=== PATIENT | male | born 2005 | race Caucasian/White ===

== ENCOUNTER 2024-07-22 10:29 | Inpatient (IN) | payer OTHER, MEDICAID, SELFPAY ==
[2024-07-22] VITALS (18 sets, daily range): BP systolic 104–130; BP diastolic 63–96; PULSE 68–120; RESP 10–100; TEMP 36.6–36.7; O2SAT 95–100; BMI 23.2
--- NOTE | 2024-07-22 10:49 | PD.EDRME ---
Rapid Medical Screening Exam RME Arrival date/time: 07/22/24 10:29 18-year-old male with a history of type 1 diabetes presents to the emergency room with a chief complaint of nausea, vomiting, generalized weakness, abdominal pain x 2 days. Mother at bedside states the patient does not control her sugars. I have greeted and performed a focused initial assessment of this patient. A comprehensive ED assessment and evaluation of the patient, analysis of all test results, and completion of the medical decision making process will be conducted by additional ED providers. Chief Complaint: General Adult/Misc Complain Vital signs reviewed by provider: Yes
[2024-07-22 11:15] LABS: Beta Hydroxybutyrate 5.7 mmol/L (<0.6)
[2024-07-22 11:16] LABS: Basophils # (Auto) 0.1 Thou/mm3 (0.0-0.2); Basophils % (Auto) 1 % (0-2.5); Eosinophils # (Auto) 0.1 Thou/mm3 (0.0-0.5); Eosinophils % (Auto) 2 % (0-10); Hemoglobin 17.2 g/dL (13.5-16.0); Immature Granulocytes % (Auto) 0 % (0-0); Lymphocytes # (Auto) 1.6 Thou/mm3 (1.0-5.0); Lymphocytes % (Auto) 31 % (10-50); Mean Corpuscular HGB Conc 35.1 g/dl (31.0-37.0); Mean Corpuscular Hemoglobin 30.2 pg (25.0-35.0); Mean Corpuscular Volume 86 fL (80-100); Monocytes # (Auto) 0.4 Thou/mm3 (0.0-0.8); Monocytes % (Auto) 8 % (0-12); Neutrophils % (Auto) 58 % (37-80); Nucleated Red Blood Cell % 0 /100 WBC (0); Platelet Count 234 Thou/mm3 (140-440); RDW Standard Deviation 41.4 fL (35.1-43.9); White Blood Count 5.1 Thou/mm3 (4.5-11.0)
[2024-07-22 11:32] LABS: Alanine Aminotransferase 14 U/L (10-49); Albumin, Serum 5.1 gm/dL (3.5-5.0); Albumin/Globulin Ratio 1.6 (1.2-2.2); Alkaline Phosphatase 137 U/L (46-116); Anion Gap 18 (7-16); Aspartate Amino Transferase 15 U/L (0-34); BUN/Creatinine Ratio 8 Ratio (12-20); Bilirubin,Total 2.5 mg/dL (0.3-1.2); Blood Urea Nitrogen 9 mg/dL (9-23); Calcium 10.1 mg/dL (8.3-10.6); Calcium (Corrected) 10.1 mg/dL (8.5-10.1); Chloride 105 mMol/L (98-107); Creatinine (Component) 1.1 mg/dL (0.6-1.3); Estimated Creatinine Clearance 111.5 mL/min (>60); Globulin 3.1 gm/dL (2.3-3.5); Glucose 260 mg/dL (74-106); Osmolality,Calculated 277 (275-295); Sodium 135 mMol/L (136-145); Total Protein 8.2 gm/dL (5.7-8.2); eGFR > 60 See Note
[2024-07-22 11:38] LABS: Carbon Dioxide 11.6 mMol/L (20.0-31.0)
--- NOTE | 2024-07-22 11:56 | XR_ITS ---
Examination: Abdomen sonogram, Limited Date and time of exam: July 22, 2024 1250 hours INDICATIONS: Epigastric pain and vomiting beginning one week ago Technique: Real-time brown scale transabdominal sonographic images of the upper abdomen obtained. Findings: Gallbladder sludge Negative for gallstones Gallbladder wall 0.3 cm no edema Common bile duct 0.2 cm Pancreatic head 2.7 cm Liver 14.2 cm smooth contour no focal liver lesions Normal hepatopedal portal venous oh Patent IVC IMPRESSION: Gallbladder sludge Negative for cholelithiasis, negative for cholecystitis
[2024-07-22 12:01] LABS: Collection Type, Urine Clean Catch
--- NOTE | 2024-07-22 12:10 | PD.EDWEAK ---
ED Weakness RME/HPI General Chief complaint: General Adult/Misc Complain Stated complaint: PAULO LEG PAIN/NAUSEA/VOMIT LAST NIGHT DM TYPE 1 Time Seen by Provider: 07/22/24 11:20 Arrival date/time: 07/22/24 10:29 RME / HPI RME / HPI Narrative: 07/22/24 10:29 18-year-old male with a history of type 1 diabetes presents to the emergency room with a chief complaint of nausea, vomiting, generalized weakness, abdominal pain x 2 days. Mother at bedside states the patient does not control her sugars. I have greeted and performed a focused initial assessment of this patient. A comprehensive ED assessment and evaluation of the patient, analysis of all test results, and completion of the medical decision making process will be conducted by additional ED providers. DR. JJ MAIN ED EVALUATION 18 year old male with history of IDDM, previous admission for DKA (last admitted 6 months ago at [facility]), ADHD presents to the ED for evaluation of weakness beginning 2 days ago. Accompanied by abdominal pain, nausea, and vomiting. States he has yet to check his sugars or give himself insulin today. Evidently last gave himself insulin weeks ago . Denies fevers, chills, chest pain, cough, shortness of breath, or urinary symptoms. Related Data Allergies Allergy/AdvReac Type Severity Reaction Status Date / Time No Known Allergies Allergy Verified 07/22/24 10:34 Review of Systems Review of Systems Narrative Review of Systems: GEN: No fever, no chills, +generalized weakness EYES: No discharge, no visual changes, no pain HEENT: No ear pain, no congestion, no sore throat PULM: No shortness of breath, no cough, no congestion CV: No chest pain, no dyspnea on exertion, no palpitations GI: +nausea, +vomiting, no diarrhea, +pain, no constipation : No frequency, no urgency and no dysuria MUSC/SKEL No joint pain, no back pain SKIN: No rash NEURO: No headache Past Medical History Social History SMOKING STATUS: Never smoker ED Exam Narrative Physical exam: GENERAL APPEARANCE: Well hydrated, well nourished, in no acute distress. VITALS: All vitals were reviewed and the pulse ox is 97% on room air which is normal according to my interpretation. HEENT: Normocephalic, atramatic, EOMI, EACs are patent. There is no bulge or retraction. Throat without erythema or exudate. Moist oromucosa. No jaundice NECK: Supple, no JVD or bruits. CARDIOVASCULAR: Heart regular without S3-S4 or murmur. No rubs or gallops. LUNGS/CHEST: Clear to auscultation bilaterally. No rales, rhonchi, or wheezing. Normal inspection. ABDOMEN: Soft, nontender, with normal bowel sounds. No pulsatile masses. No rebound, rigidity, or guarding. No incarcerated hernia. Normal inspection and palpation. EXTREMITIES: Normal inspection and palpation. No edema, clubbing, or cyanosis. Intact CSM SKIN: Warm and dry without rashes. Normal inspection. MUSCULOSKELETAL: Normal inspection. No gross deformity, full ROM all extremities NEURO: Alert and oriented x3. Cranial nerves II through XII grossly intact. There are no other motor or sensory deficits noted. PSYCHIATRIC: Normal mood and affect. No psychosis. Course Quality Measures none Orders Category Date Time Status Fingerstick [Bedside Blood Glucose] NOW Care 07/22/24 10:48 Active Insert IV NOW Care 07/22/24 12:16 Active US gall bladder Stat Exams 07/22/24 11:56 Completed Alcohol, Blood Medical Stat Lab 07/22/24 11:05 Completed BMP [Basic Metabolic Panel] Stat Lab 07/22/24 13:30 Results Beta Hydroxybutyrate Stat Lab 07/22/24 11:05 Completed Beta Hydroxybutyrate Stat Lab 07/22/24 13:30 Results CBC Stat Lab 07/22/24 11:05 Completed CMP [Comprehensive Metabolic Panel] Stat Lab 07/22/24 11:05 Completed Drug Screen,Urine Stat Lab 07/22/24 11:54 Completed Drug Screen,Urine Stat Lab 07/22/24 11:56 Ordered Lactate (Lactic Acid) Stat Lab 07/22/24 11:05 Completed UA, C/S IF [Urinalysis, C/S if Indicated] Stat Lab 07/22/24 11:54 Completed Venous Blood Gas Stat Lab 07/22/24 12:24 Completed Venous Blood Gas Stat Lab 07/22/24 13:30 Completed Ondansetron Odt [Zofran Odt] Med 07/22/24 10:48 Discontinued 4 mg PO X1 ONE Sodium Chloride 0.9% 1000 ml [Ns] 1,000 ml Med 07/22/24 12:05 Discontinued IV 999 mls/hr Sodium Chloride 0.9% 1000 ml [Ns] 1,000 ml Med 07/22/24 12:16 Discontinued IV 999 mls/hr Vital Signs Vital signs: Vital Signs Temperature 98.1 F 07/22/24 10:50 Pulse Rate 120 H 07/22/24 10:50 Respiratory Rate 19 07/22/24 10:50 Blood Pressure 119/85 H 07/22/24 10:50 Pulse Oximetry (%) 97 07/22/24 10:50 Oxygen Delivery Method Room Air 07/22/24 10:50 Weakness MDM Narrative MDM Narrative:: I, Irene Jaffe, phillip scribing for and in the presence of Dr. Jj. Patient CBC is negative. CMP showing a bicarb of 12 blood sugar 260 anion gap of 18 and beta hydroxy of 5.7 which is consistent with DKA. In addition venous blood gas showed a pH of 7.2 Total bilirubin is 2.5 but it appeared that he had the same did be a total bilirubin in February 2024 which is 2.7. Patient deny having any liver cirrhosis or liver problem. In the emergency department the patient was given 2 L normal saline boluses. Repeated BMP is still pending. Repeat beta hydroxy is 6. Repeated venous blood gas still showing a pH of 7.22. 2:20 PM, I spoke to and discussed with Dr. Ochoa, allergy and immunology specialist on-call. He agreed to admit the patient for further evaluation and treatment in the ICU. Critical care time is approximately 45 minutes excluding any procedure. The high probability of sudden, clinically significant deterioration in the patient?s condition required the highest level of my preparedness to intervene urgently. The services I provided to this patient were to treat and/or prevent clinically significant deterioration. Services included the following: chart data review, reviewing nursing notes and/or old charts, documentation time, merchandising consultant collaboration regarding findings and treatment options, medication orders and management, direct patient care, vital sign assessments and ordering, interpreting and reviewing diagnostic studies and lab tests. Aggregate critical care time includes only time during which I was engaged in work directly related to the patient?s care, as described above, whether at bedside or elsewhere in the Emergency Department. It did not include time spent performing other reported procedures or the services of residents, students, nurses or physician assistants. Patient data External records reviewed:: [facility] previous records (I reviewed ED visit on 02/17/2024 ) Clinical information provided by:: patient Social determinants that could affect healthcare access:: none Patient has the following chronic illnesses:: Type 1 insulin dependant diabetes, ADHD How is presenting disease/condition affected by chronic disease/condition?: exacerbated by Evaluation data The following diagnostics were reviewed and interpreted by me:: lab results and radiology exam(s) Lab and/or radiology exams considered but not ordered:: None Interpretation Summary: Ordering Physician: Genny García Date of Service: 07/22/24 Procedure(s): US gall bladder Accession Number(s): [id number] cc: Genny García; Demetrio Boggs MD~ Examination: Abdomen sonogram, Limited Date and time of exam: July 22, 2024 1250 hours INDICATIONS: Epigastric pain and vomiting beginning one week ago Technique: Real-time brown scale transabdominal sonographic images of the upper abdomen obtained. Findings: Gallbladder sludge Negative for gallstones Gallbladder wall 0.3 cm no edema Common bile duct 0.2 cm Pancreatic head 2.7 cm Liver 14.2 cm smooth contour no focal liver lesions Normal hepatopedal portal venous oh Patent IVC IMPRESSION: Gallbladder sludge Negative for cholelithiasis, negative for cholecystitis Dictated By: Demetrio Boggs MD Signed By: <Electronically signed by Demetrio Boggs MD in OV> 07/22/24 1314 Medications / Prescriptions Medications or Prescriptions considered but not ordered:: None Medication administrations:: Medication Administration History Discontinued Medications Sodium Chloride (Ns) 1,000 mls @ 999 mls/hr IV .Q1H1M ONE Stop: 07/22/24 13:05 Last Infusion: 07/22/24 13:22 Dose: Infused Documented By: Admin: 07/22/24 12:30 Dose: 999 mls/hr Documented By: RAMONA Sodium Chloride (Ns) 1,000 mls @ 999 mls/hr IV .Q1H1M ONE Stop: 07/22/24 13:16 Last Infusion: 07/22/24 13:22 Dose: Infused Documented By: Admin: 07/22/24 12:32 Dose: 999 mls/hr Documented By: RAMONA Ondansetron HCl (Ondansetron Odt 4 Mg Tabrap) 4 mg PO X1 ONE; Protocol Stop: 07/22/24 10:49 Last Admin: 07/22/24 13:22 Dose: Not Given Documented By: DB Non-Admin Reason: Change of Condition See above Consultations Consultation(s) initiated? (list below): Yes Consultation #1 (Physician, Specialty, Details): I spoke with spouting installer Dr. Clark. Discussed patients PMHx, HPI, ED course, exam findings, labs, and radiology results. Patient accepted for admission. Diagnosis Weakness Differential Diagnosis: anemia, hypothyroidism, sepsis, dehydration and other (hyperglycemia, DKA ) Most likely diagnosis given after review of the tests above:: DKA Admission Indicated Admission indicated?: indicated Admission Request Was there a request for admission?: Yes Admission Attestation Admission request attestation: Discussed case with [] from Hospitalist service regarding admission. Discussed patients ED course, exam findings, labs, and radiology results. The Hospitalist [agrees,declines] to accept the patient for admission. Disposition Plan Disposition Plan: Admit Discharge Plan Plan Patient Disposition: Admit Acute Care w/in Hospital Disposition Comment: stabilized and improved Problem List Clinical Impression: DKA (diabetic ketoacidosis), Gallbladder sludge Patient/Caregiver Discharge Instructions Print Language: Azeri Stand Alone Forms: [facility] Award Info., Patient Portal Info Letter
[2024-07-22 12:15] LABS: Bacteria,Urine Rare; Bilirubin,Urine Negative (Negative); Blood,Urine Trace (Negative); Clarity,Urine Clear (Clear/Hazy); Color,Urine Lt-Yellow (Lt Yel-Yel); Culture Indicated,Urine Not Indicated; Glucose, Urine 4+ (Negative); Hyaline Casts,Urine < 1 /hpf (0-1); Ketones,Urine 4+ (Negative); Leukocyte Esterase,Urine Negative (Negative); Nitrite,Urine Negative (Negative); Protein,Urine 2+ (Neg - Trace); RBC,Urine 2 /hpf (0-3); Squamous Epithelial Cell,Urine < 1 /hpf (0-5); Urobilinogen,Urine Negative mg/dL (0.0-1.0); WBC,Urine 1 /hpf (0-5)
[2024-07-22 12:17] LABS: Amphetamine/Methamp Scrn,U Negative (Negative); Barbiturate Screen,Urine Negative (Negative); Benzodiazepines Screen,Urine Negative (Negative); Benzoylecgonine Screen, Ur Negative (Negative); Fentanyl Screen,Urine Negative (Negative); Opiate Screen,Urine Negative (Negative); THC Screen,Urine Negative (Negative)
[2024-07-22] MEDS: SODIUM CHLORIDE 0.9% 1000 ML 1,000 ML 999 ML IV ×2 (12:30→12:32)
[2024-07-22 12:37] LABS: Base Excess, Venous -15 (-3-3); O2 Saturation, Venous 82 % (96-97); PCO2, Venous 29 mmHg (36-56); PO2, Venous 49 mmHg (15-58)
[2024-07-22 13:12] LABS: Alcohol, Blood Medical < 3.0 mg/dL (0-10.0)
[2024-07-22 13:15] LABS: Lactate (Lactic Acid) 1.4 mMol/L (0.4-2.0)
[2024-07-22 13:40] LABS: Base Excess, Venous -17 (-3-3); O2 Saturation, Venous 89 % (96-97); PCO2, Venous 22 mmHg (36-56); PO2, Venous 57 mmHg (15-58); pH, Venous 7.22 (7.33-7.66)
[2024-07-22 14:02] LABS: Anion Gap 17 (7-16); BUN/Creatinine Ratio 8 Ratio (12-20); Blood Urea Nitrogen 7 mg/dL (9-23); Calcium 8.6 mg/dL (8.3-10.6); Chloride 109 mMol/L (98-107); Creatinine (Component) 0.9 mg/dL (0.6-1.3); Estimated Creatinine Clearance 136.3 mL/min (>60); Glucose 220 mg/dL (74-106); Osmolality,Calculated 278 (275-295); Potassium 4.2 mMol/L (3.4-5.1); Sodium 137 mMol/L (136-145); eGFR > 60 See Note
[2024-07-22 14:38] LABS: Carbon Dioxide 10.9 mMol/L (20.0-31.0)
[2024-07-22] MEDS: PANTOPRAZOLE INJ 40 MG VIAL IVP (15:18)
--- NOTE | 2024-07-22 15:37 | ESHP_ITS ---
<Statement entered by Marcos Clark MD - 07/23/24 08:15> TOTAL CC TIME: 35 MIN I saw and evaluated the patient. I reviewed the resident?s note and agree with findings and plan as documented in the resident?s note. Upon my evaluation, this patient had a high probability of imminent or life- threatening deterioration due to DKA which required my direct attention, intervention, and personal management. This time is exclusive of time spent on procedures, which are documented separately if performed. Continue with aggressive IV fluids, initiated on DKA insulin drip protocol. Monitor electrolytes carefully. Transition to subcutaneous insulin once serum bicarbonate is at least greater than 16 and anion gap is closed Documentation for date of: 07/22/24 HPI History of Present Illness Chief complaint: Nausea/vomiting History of present illness: Patient is a 18-year-old male with past medical history significant for type 1 diabetes and ADHD who presented to the ED with nausea and vomiting since yesterday. Associated symptoms include bilateral leg pain, fatigue, abdominal pain, extreme thirst on and off for the last 2 weeks. Patient states that he has been noncompliant with his insulin for the last 2 weeks, and states that he was just frustrated, and decided not to take his insulin as he regularly does. Patient usually eats 3 meals a day, and checks his glucose with his Dexcom G7 and supplements with insulin prior to eating his meals. Patient has a guide on how to calculate carbs. Of note, patient was diagnosed with type 1 diabetes at age 15, and has had 2 prior episodes similar to her current presentation where he was hospitalized for DKA Past medical history as mentioned above Past surgical history: None Meds: Patient takes insulin before meals 4 times daily as well as methylphenidate 27 mg p.o. daily in the morning Allergies: NKDA Social history: Patient smokes about 2 to 4 cigarettes daily for the last 6 months. Patient denies any alcohol or illicit drug use. Patient currently lives with his and in [place]. Family history: Mom in a motor vehicle accident, when he was very young. Patient's grandmother on his dad side has diabetes. Denies any family history for heart disease or cancers. ED course: Patient presented with tachycardia, otherwise hemodynamically stable. Labs significant for elevated hemoglobin of 17.2, pH is 7.22, Bicarb level 11.6, and BHP of 5.7, with anion gap of 18. UA positive for protein, glucose and ketones in urine, as well as dehydration. In the ER, patient was given 2 L of NS patient will be admitted to ICU for further management of DKA. Review of Systems Review of Systems Systems Reviewed: All systems reviewed, normal except as documented Exam Vital Signs Temp Pulse Resp BP Pulse Ox O2 Del Method 98 F 95 16 104/63 99 Room Air 07/22/24 14:37 07/22/24 14:37 07/22/24 14:37 07/22/24 14:37 07/22/24 14:37 07/22/24 14:37 Narrative Exam General Appearance: Pt in mild acute distress laying in bed. Patient appears disheveled, with acne nodules around his forehead and chin. Cooperative to questions. HEENT: NC/AT, no scleral icterus, no conjunctival pallor, dry mucous membranes Lungs: CTAB, no wheezes or crackles appreciated CVS: RRR, S1/S2 heard, no murmurs or rubs appreciated ABD: Soft, non-tender, non-distended, BS + in all 4 quadrants EXT: no deformity/edema/lesions/cyanosis/clubbing, radial pulses 2+ BL, DP pulses 2 + BL SKIN: Skin exam normal without any rashes. Neuro: A&O x 3. No gross neurological deficits. Motor and sensory grossly intact in B/L UL and LL. Psych: Appropriate mood and affect Results: Labs 07/22/24 11:05 07/22/24 13:30 Labs: Short CBC 07/22/24 Range/Units 11:05 WBC 5.1 (4.5-11.0) Thou/mm3 Hgb 17.2 H (13.5-16.0) g/dL Hct 49.0 (41.0-53.0) % Plt Count 234 (140-440) Thou/mm3 BMP 07/22/24 07/22/24 11:05 13:30 Sodium 135 L 137 Potassium 4.0 4.2 Chloride 105 109 H Carbon Dioxide 11.6 L* 10.9 L* BUN 9 7 L Creatinine 1.1 0.9 Glucose 260 H 220 H Calcium 10.1 8.6 D Liver Function 07/22/24 Range/Units 11:05 Total Bilirubin 2.5 H (0.3-1.2) mg/dL AST 15 (0-34) U/L ALT 14 (10-49) U/L Alkaline Phosphatase 137 H (46-116) U/L Albumin 5.1 H (3.5-5.0) gm/dL Urine 07/22/24 Range/Units 11:54 Urine Color Lt-Yellow (Lt Yel-Yel) Urine Clarity Clear (Clear/Hazy) Urine pH 6.0 (5.0-7.0) Ur Specific [place] 1.040 H (1.001-1.035) Urine Protein 2+ A (Neg - Trace) Urine Glucose (UA) 4+ A (Negative) ABG Interpretation ABG results: 07/22/24 07/22/24 12:24 13:30 VBG pH 7.20 L 7.22 L VBG pCO2 29 L 22 L VBG pO2 49 57 VBG Base Excess -15 L -17 L Quality Measures Quality Measures none Medications Home Medications and Allergies Home Medications ?Medication ?Instructions ?Recorded ?Confirmed ?Type methylphenidate HCl 27 mg 27 mg PO DAILY ADHD 07/22/24 07/22/24 History tablet,extended release 24 hr Allergies Allergy/AdvReac Type Severity Reaction Status Date / Time No Known Allergies Allergy Verified 07/22/24 10:34 Visit Medications Acetaminophen (Acetaminophen 325 Mg Tablet) 650 mg PO Q4HR PRN PRN Reason: PAIN SCALE 1-3 (mild Stop: 08/21/24 14:55 Acetaminophen (Acetaminophen Supp 650 Mg Supp) 650 mg MA Q4HR PRN PRN Reason: PAIN SCALE 1-3 (mild Stop: 08/21/24 14:55 Al Hydrox/Mg Hydrox/Simethicone (Mg Hyd/Al Hyd/Ashley (Maalox Reg) Susp 30 Ml Udc) 30 ml PO Q4HR PRN PRN Reason: Heartburn or Upset Stomach Stop: 08/21/24 14:55 Dextrose (Dextrose 50%-Water Inj 50 Ml Syringe) 25 ml IV [id number] PRN PRN Reason: Blood Sugar - Low Potassium Chloride (Kcl Ivpb) 10 meq in 100 mls @ 100 mls/hr IV .Q1H PRN PRN Reason: IF POTASSIUM LESS THAN 3.3 Stop: 08/21/24 15:01 Magnesium Sulfate (Magnesium Sulfate Ivpb) 2 gm in 50 mls @ 25 mls/hr IV .Q2H PRN PRN Reason: PER DKA PROTOCOL Stop: 08/21/24 15:01 Insulin Human Regular 100 unit (/ IV Miscellaneous Supplies) 100 mls @ 7.337 mls/hr IV .[id number] PRN; Protocol PRN Reason: PER PROTOCOL Stop: 08/21/24 15:01 Dextrose/Lactated Ringer's (D5-Lr) 1,000 mls @ 250 mls/hr IV .Q4H PRN PRN Reason: PER PROTOCOL Stop: 08/21/24 15:01 Lactated Ringer's (Lactated Ringers) 1,000 mls @ 250 mls/hr IV .Q4H PRN PRN Reason: PER PROTOCOL Stop: 07/23/24 15:01 Potassium Chloride 20 meq/ (Lactated Ringer's) 1,010 mls @ 250 mls/hr IV .Q4H3M PRN PRN Reason: K LEVEL 3.3 TO 5.3mM/L Stop: 08/21/24 15:01 Potassium Chloride 40 meq/ (Lactated Ringer's) 1,020 mls @ 250 mls/hr IV .Q4H5M PRN PRN Reason: K LEVEL < 3.3 mM/L Stop: 08/21/24 15:01 Potassium Chloride 40 meq/ (Dextrose/Lactated Ringer's) 1,020 mls @ 250 mls/hr IV .Q4H5M PRN PRN Reason: K LEVEL < 3.3mM/L Stop: 08/21/24 15:01 Potassium Cl/Dextrose/Lact Ringer's (Kcl 20 Meq/L In D5-Lr) 20 meq in 1,000 mls @ 250 mls/hr IV .Q4H PRN PRN Reason: K LEVEL 3.3 TO 5.3 mM/L Stop: 08/21/24 15:01 Potassium Chloride (Kcl Ivpb) 10 meq in 100 mls @ 50 mls/hr IV PRN PRN PRN Reason: K LEVEL 3.3 to 5.3 & BG > 200 Stop: 08/21/24 15:01 Potassium Phosphate (Pot Phos 15 Mmol In Ns 250 Ml) 15 mmol in 250 mls @ 62.5 mls/hr IV PRN PRN PRN Reason: Phosphate <= 1mg/dL Stop: 08/21/24 15:01 Sodium Phosphate 15 mmol/ (Sodium Chloride) 255 mls @ 62.5 mls/hr IV .Q4H5M PRN PRN Reason: Phosphate <= 1mg/dL and K> than 5.3 Stop: 08/21/24 15:01 Magnesium Hydroxide (Milk Of Magnesia Susp 30 Ml Udc) 30 ml PO QDAY PRN PRN Reason: CONSTIPATION Stop: 08/21/24 14:55 Pantoprazole Sodium (Pantoprazole Inj 40 Mg Vial) 40 mg IVP QDAY JAREN Stop: 08/21/24 14:59 Last Admin: 07/22/24 15:18 Dose: 40 mg Sodium Bicarbonate (Sodium Bicarb Inj 8.4% Syr 50 Ml Syringe) 50 ml IV PRN PRN PRN Reason: For ph <= to 7.0 Stop: 08/21/24 15:01 Discontinued Medications Sodium Chloride (Ns) 1,000 mls @ 999 mls/hr IV .Q1H1M ONE Stop: 07/22/24 13:05 Last Infusion: 07/22/24 13:22 Dose: Infused Sodium Chloride (Ns) 1,000 mls @ 999 mls/hr IV .Q1H1M ONE Stop: 07/22/24 13:16 Last Infusion: 07/22/24 13:22 Dose: Infused Ondansetron HCl (Ondansetron Odt 4 Mg Tabrap) 4 mg PO X1 ONE; Protocol Stop: 07/22/24 10:49 Last Admin: 07/22/24 13:22 Dose: Not Given Assessment & Plan Plan Patient is a 18-year-old male with past medical history significant for type 1 diabetes and ADHD who presented to the ED with nausea and vomiting since yesterday and admitted to ICU for further management of DKA. NEURO Stable CARDIO Stable PULM Stable GI/FEN #Intractable nausea/vomiting Patient endorsed an episode emesis yesterday. Patient has been nauseous over the last 2 weeks since he stopped taking his insulin. -Continue with Zofran PRN -Started IV PPI for GI Ulcer prophylaxis RENAL #Diabetic ketoacidosis #Mixed anion gap metabolic acidosis #Dehydration Patient has been noncompliant with his insulin administration for the last 2 weeks. Patient also has been extremely thirsty. Labs such as elevated hemoglobin of 17.2 and specific gravity on UA at 1.040 suggest severe dehydration. Lactic acid 1.4 on admission. Na 135, Cl 105, K 4, CO2 11.6, anion gap 18, glucose 220+, osmolality 277, beta-hydroxybutyrate 5.7. Patient's delta delta gradient is -7 and delta ratio is 0.52 suggesting a mixed high and normal anion gap acidosis. Initial VBG pH 7.22 Patient has received 2L NS. -Lactate q4h -Renal function panel q4h -Mag q4h -K, Mag, and Phos replacement protocols -DKA maintenance fluid protocol -Strict intake and output HEME/ONC Stable ENDO #Diabetic ketoacidosis #Diabetes Mellitus, type I Anion gap 18, glucose 220+ , osmolality 277, lactic acid 1.4, beta- hydroxybutyrate 5.7. Last A1c 11.4%, which is increased from last A1c 5 months ago, 10%. Patient normally takes insulin after checking his glucose prior to eating his meals. Patient counts his carbohydrates with a guide. -Insulin protocol: 0.05 U/kg/hr for any BG >200, 0.025 U/kg/hr for BG 100-149, infusion off for BG <99. -Goal is reduction of BG by 50-75 per hour to avoid cerebral edema -DKA maintenance fluid protocol -once AG has closed x2 will transition to subq insulin -NPO, transition to clear liquid diet -Fasting lipid panel follow-up -Dietary referral ID Stable MSK Stable PSYCH #ADHD -Resume patient's home methylphenidate 27 mg daily in AM Health Maintenance: DVT prophylaxis: None, activity as tolerated Diet: Diabetic diet?clear liquid Skinner: No Lines: PIV Drips: Insulin CODE STATUS: Full code Disposition: Admitted to ICU for DKA Management Patient's care and plan discussed with my attending, Dr. Amber Arceo, PGY-2
[2024-07-22] MEDS: INSULIN REG 100 UNITS/100 ML 100 UNIT in PRE-MIXED 1 BAG IV (16:00)
[2024-07-22] MEDS: KCL 20 mEq/L in D5-LR 20 MEQ/1,000 ML BAG 250 MEQ IV ×2 (16:09→18:03)
--- NOTE | 2024-07-22 16:57 | PC.CC ---
Patient is a 18 year old male whom presents to the hospital due to DKA. Ashley BETHEA made [id number] contact with patient. ASW introduced self, role, and reason for visit. Patient appeared alert and oriented to self, location, and situation. Patient was pleasant and engaged in initial assessment. Patient confirmed demographic information. Patient states he currently lives with his aunt, Zabrina Leonardo ([phone]). Patient stated he has no advanced healthcare directive or POLST. Patient stated if he was unable to make medical decisions his aunt Zabrina would be his medical decision maker. Patient ambulates independently and is able to complete his own ADL's. Patients stated his primary care provider is Dr. Haywood. Upon discharge patient plans to return back home. business services coordinator to follow up upon discharge.
[2024-07-22] MEDS: POT CHL ADDITIVE 20 MEQ in RINGERS LACTATED 1000 ML 1,000 ML 250 MEQ IV ×2 (17:31→20:03)
[2024-07-22 17:40] LABS: Glucose Estimated Average 280 mg/dL (80-131); Hemoglobin A1C 11.4 % Hgb (4.8-6.0)
[2024-07-22 17:42] LABS: Cardiac Risk Estimate 6.3 RATIO (4.0-6.7); Cholesterol 225 mg/dL (132-200); HDL Cholesterol 36 mg/dL (40-60); LDL Cholesterol,Calculated 171 mg/dL (0-130); Magnesium 1.7 mg/dL (1.6-2.6); Phosphorous 1.9 mg/dL (2.4-5.1); Triglycerides 90 mg/dL (30-150)
[2024-07-22] MEDS: Magnesium Sulfate 2 GM Ivpb 2 GM/50 ML BAG IV (18:13)
[2024-07-22 19:53] LABS: Lactate (Lactic Acid) 4.6 mMol/L (0.4-2.0)
[2024-07-22 22:44] LABS: Reflex Lactate? Y
[2024-07-22 22:54] LABS: Lactic Acid, 3 HR 1.2 mMol/L (0.4-2.0)
[2024-07-22 23:49] LABS: Albumin, Serum 3.8 gm/dL (3.5-5.0); Anion Gap 11 (7-16); BUN/Creatinine Ratio 6 Ratio (12-20); Blood Urea Nitrogen < 5 mg/dL (9-23); Calcium 8.9 mg/dL (8.3-10.6); Calcium (Corrected) 9.1 mg/dL (8.5-10.1); Carbon Dioxide 17.3 mMol/L (20.0-31.0); Chloride 112 mMol/L (98-107); Creatinine (Component) 0.8 mg/dL (0.6-1.3); Estimated Creatinine Clearance 153.4 mL/min (>60); Glucose 142 mg/dL (74-106); Magnesium 1.9 mg/dL (1.6-2.6); Osmolality,Calculated 278 (275-295); Phosphorous 1.3 mg/dL (2.4-5.1); Potassium 3.6 mMol/L (3.4-5.1); Sodium 140 mMol/L (136-145); eGFR > 60 See Note
[2024-07-23] VITALS (12 sets, daily range): BP systolic 113–151; BP diastolic 62–91; PULSE 64–101; RESP 17–98; TEMP 36.9–37.1; O2SAT 97–99; BMI 23.2
[2024-07-23 02:39] LABS: Lactate (Lactic Acid) 0.8 mMol/L (0.4-2.0)
[2024-07-23 03:05] LABS: Albumin, Serum 3.6 gm/dL (3.5-5.0); Anion Gap 11 (7-16); BUN/Creatinine Ratio 7 Ratio (12-20); Blood Urea Nitrogen < 5 mg/dL (9-23); Calcium 8.7 mg/dL (8.3-10.6); Carbon Dioxide 18.5 mMol/L (20.0-31.0); Chloride 111 mMol/L (98-107); Creatinine (Component) 0.7 mg/dL (0.6-1.3); Estimated Creatinine Clearance 175.3 mL/min (>60); Glucose 152 mg/dL (74-106); Magnesium 1.5 mg/dL (1.6-2.6); Osmolality,Calculated 279 (275-295); Phosphorous 1.5 mg/dL (2.4-5.1); Potassium 3.1 mMol/L (3.4-5.1); Sodium 140 mMol/L (136-145); eGFR > 60 See Note
[2024-07-23] MEDS: KCL 20 mEq/L in D5-LR 20 MEQ/1,000 ML BAG 250 MEQ IV (03:21)
--- NOTE | 2024-07-23 05:06 | PC.NURSE ---
called lab for updates regarding patient's cmp @[id number], spoke to ANAI [place] who said that she will release in 10 minutes. 0508 cmp resulted after chart was refreshed. POC updated notified Dr. Garrett of delays to cmp results.
[2024-07-23] MEDS: POT CHL ADDITIVE 40 MEQ in DEXTROSE 5%-LACTATED RINGERS 1,000 ML 250 MEQ IV (05:20)
[2024-07-23] MEDS: INSULIN GLARGINE (Lantus) 5 UNIT/0.05 ML (PER 5 UNITS) 20 UNIT SC ×2 (05:23→08:51)
[2024-07-23] MEDS: Magnesium Sulfate 2 GM Ivpb 2 GM/50 ML BAG IV (06:21)
[2024-07-23] MEDS: PANTOPRAZOLE INJ 40 MG VIAL IVP (08:45)
[2024-07-23] MEDS: INSULIN LISPRO (AdmeLOG) 1 UNIT/0.01 ML UNIT SC (08:52)
[2024-07-23] MEDS: INSULIN LISPRO (AdmeLOG) 1 UNIT/0.01 ML UNIT 5 UNIT SC (08:52)
[2024-07-23 09:02] LABS: Basophils % (Auto) 1 % (0-2.5); Eosinophils # (Auto) 0.3 Thou/mm3 (0.0-0.5); Eosinophils % (Auto) 7 % (0-10); Hematocrit 41.1 % (41.0-53.0); Hemoglobin 14.8 g/dL (13.5-16.0); Immature Granulocytes % (Auto) 0 % (0-0); Lymphocytes # (Auto) 1.9 Thou/mm3 (1.0-5.0); Lymphocytes % (Auto) 46 % (10-50); Mean Corpuscular Hemoglobin 30.2 pg (25.0-35.0); Mean Corpuscular Volume 84 fL (80-100); Monocytes # (Auto) 0.4 Thou/mm3 (0.0-0.8); Monocytes % (Auto) 10 % (0-12); Neutrophils # (Auto) 1.5 Thou/mm3 (1.8-7.7); Neutrophils % (Auto) 37 % (37-80); Nucleated Red Blood Cell % 0 /100 WBC (0); Platelet Count 164 Thou/mm3 (140-440); RDW Standard Deviation 41.6 fL (35.1-43.9); White Blood Count 4.2 Thou/mm3 (4.5-11.0)
--- NOTE | 2024-07-23 10:05 | ESDS_ITS ---
<Statement entered by Marcos Clark MD - 07/24/24 10:31> TOTAL TIME: 45MINUTES ON DIRECT MEDICAL CARE, MANAGEMENT - COORDINATION AND COUNSELING > 50% OF TOTAL TIME I saw and evaluated the patient. I reviewed the resident?s note and agree with findings and plan as documented in the resident?s note. DKA has resolved. Patient has been provided diabetic education and counseling regarding the importance of compliance with blood sugar checks, diet as well as insulin therapy. He has insulin at home. Appropriate prescriptions were provided. He will be discharged in stable condition out of the ICU. He was witnessed to be able to tolerate p.o. intake and ambulate without difficulty. Patient has follow-up plans with PCP. Planned Discharge Date 07/23/24 DS: Providers Provider Date of admission: 07/22/24 14:56 Primary care physician: Physician No Primary/Family Admitting Provider: Marcos Clark MD Attending Provider on Admission: Marcos Clark MD Consults: 07/22/24 15:02 Referral Registered Dietitian Routine Comment: 07/22/24 20:36 [facility] Referral - Knowledge Deficit Routine Comment: Positive screening for knowledge deficit needs. Attending Provider on DC: Christine Arceo MD Discharging Provider: Christine Arceo MD DS: Diagnosis Problem List Completed Was Problem List Reviewed/Reconciled?: Yes Hospital Course Hospital Course Hospital course: Patient is a 18-year-old male with past medical history significant for type 1 diabetes and ADHD who presented to the ED with nausea and vomiting since yesterday and admitted to ICU for further management of DKA. Patient states that he has been noncompliant with his insulin for the last 2 weeks, and states that he was just frustrated, and decided not to take his insulin as he regularly does. Through his short stay in the unit, patient was transitioned to subcutaneous insulin after his anion gap closed twice overnight. Patient's glucose is around goal of 140-180. Pt seen and examined at bedside and denied any nausea, vomiting, or abdominal pain. Patient's A1c this visit was 11.4%. Patient was educated on the importance of taking his insulin as per his Dexcom reader and advised on healthy meal options and exercise incorporation into his daily routine. Pt is medically cleared to be discharged today with the following instructions: Please take your long acting insulin nightly and sliding scale prior to meals per your Dexcom reader. Take your home Methylphenidate as prescribed. Please make an appointment with [facility] at [phone] to establish care, for 08/08/2024 Have a balanced diet three times a day, and limit amount of carbohydrates and red meat and incorporate exercise into our daily routine. Hospital discharge diagnoses treated during hospital stay: #Intractable nausea/vomiting-resolved #Mixed anion gap metabolic acidosis-resolved #Dehydration-resolved #Diabetic ketoacidosis-resolved #Diabetes Mellitus, type I #Hypercholesterolemia #Mild ANA LUISA-resolving #ADHD-stable Patient's care and plan discussed with my attending, Dr. Amber Arceo, PGY-2 Status at Discharge Cognitive/behavioral status at discharge: stable Time Spent with Patient Time attestation: Total time spent providing and/or coordinating discharge services: Exam Vital Signs Temp Pulse Resp BP Pulse Ox O2 Del Method 98.8 F 101 H 20 129/77 99 Room Air 07/23/24 04:00 07/23/24 06:00 07/23/24 06:00 07/23/24 06:00 07/23/24 06:00 07/23/24 08:00 Narrative Exam General Appearance: Pt in no acute distress laying in bed. Patient appears well nourished and hydrated. Mild acne nodules on forehead and chin. Cooperative to questions. HEENT: NC/AT, no scleral icterus, no conjunctival pallor, MMM Lungs: CTAB, no wheezes or crackles appreciated CVS: RRR, S1/S2 heard, no murmurs or rubs appreciated ABD: Soft, non-tender, non-distended, BS + in all 4 quadrants EXT: no deformity/edema/lesions/cyanosis/clubbing, radial pulses 2+ BL, DP pulses 2 + BL SKIN: Skin exam normal without any rashes. Neuro: A&O x 3. No gross neurological deficits. Motor and sensory grossly intact in B/L UL and LL. Psych: Appropriate mood and affect Discharge Plan Plan Patient Disposition: HOME (Self Care) Disposition Comment: stabilized and improved Prescriptions/Referrals Prescriptions/Med Rec: New insulin degludec [Tresiba FlexTouch U-100] 100 unit/mL (3 mL) insulin pen 40 unit subcut QDAY 90 Days Qty: 36 3RF insulin lispro 100 unit/mL insulin pen 1 sliding scale dose subcut USEASDIRECTD 90 Days Qty: 15 3RF (DME) Dexcom G7 Sensor Device See Rx Instructions .Route Qty: 1 3RF Rx Instructions: As directed Continued methylphenidate HCl 27 mg tablet extended release 24hr 27 mg PO DAILY Patient Comments: TAKE 1 TABLET BY MOUTH DAILY IN THE MORNING insulin lispro 100 unit/mL insulin pen SUBCUT Patient Comments: INJECT 1 UNIT PER 5 GRAMS OF CARBOHYDRATES. MAY USE UP TO 90 UNITS PER DAY. (DME) Dexcom G7 Sensor Device Patient Comments: CHANGE EVERY 2 WEEKS insulin degludec [Tresiba FlexTouch U-100] 100 unit/mL (3 mL) insulin pen SUBCUT Patient Comments: INJECT 35 UNITS SUBCUTANEOUS EVERY DAY UP TO 45 UNITS DAILY DIRECTED PROVIDER Referrals: No Primary/Family,Physician [Primary Care Provider] - Christine Arceo MD [Resident] - Patient/Caregiver Discharge Instructions Other Discharge Activity Instructions:: Please take your long acting insulin nightly and sliding scale prior to meals per your Dexcom reader. Take your home Methylphenidate as prescribed. Please make an appointment with [facility] at [phone] to establish care, for 08/08/2024 Have a balanced diet three times a day, and limit amount of carbohydrates and red meat and incorporate exercise into our daily routine Education Materials: Healthy Meals for Diabetes, Diabetes Learn Serve Portion Size, Diabetic Ketoacidosis Print Language: Moroccan Stand Alone Forms: [facility]ira Award Info., Patient Portal Info Letter Discharge Order Discharge Orders: Discharge (Routine); Ordered 07/23/24 Ordered By: Christine Arceo Quality Discharge Quality Measures VTE prophylaxis (not indicated )
== END 2024-07-23 11:05 | disposition home or self-care (01) | DRG 420 ==
LOC: SERX 14:50 → SERHOLD 15:08 → S2SX 20:12
PROVIDERS: Nurse Practitioner Family; Student in an Organized Health Care Education/Training Program; Admitting Provider Internal Medicine; Emergency Provider Emergency Medicine; Visit Provider Internal Medicine
DX: E10.10 Type 1 diabetes mellitus with ketoacidosis without coma (principal); E86.0 Dehydration; F90.9 Attention-deficit hyperactivity disorder, unspecified type; K82.8 Other specified diseases of gallbladder; E78.00 Pure hypercholesterolemia, unspecified; R00.0 Tachycardia, unspecified; N17.9 Acute kidney failure, unspecified; R10.9 Unspecified abdominal pain; F17.210 Nicotine dependence, cigarettes, uncomplicated; T38.3X6A Underdosing of insulin and oral hypoglycemic [antidiabetic] drugs, initial encounter; Z63.4 Disappearance and death of family member; Z79.899 Other long term (current) drug therapy; Z91.128 Patient's intentional underdosing of medication regimen for other reason
CPT/HCPCS: 36415; 76705; 80048; 80053; 80061; 80069; 80307; 80320; 81001; 82010; 82803; 83036; 83605; 83735; 84100; 85025; 87040; 87081; 96360; 96361; 96365; 96366; 96368; 99291; J1815; J2470; J3475; J3480; J7030; J7120; J7121; G0480